=== PATIENT | female | born 1980 | race Two or more races ===

== ENCOUNTER 2025-08-02 18:54 | Emergency (ER) | payer OTHER ==
[~2025-08-02] VITALS: Ht 152.4 cm; Wt 87.5 kg
[2025-08-02] MEDS ORDERED: PEPCID20 MG PO (19:56)
[2025-08-02] MEDS ORDERED: ELIQUIS5 MG PO (19:56)
[2025-08-02] MEDS ORDERED: DEXAMETHASONE SODIUM PHOSPHATE 4 MG/ML VIAL IM ONE (21:45)
[2025-08-02] MEDS ORDERED: ORPHENADRINE CITRATE 30 MG/ML AMPUL IM ONE (21:45)
[2025-08-02] MEDS ORDERED: ORPHENADRINE CITRATE 30 MG/ML AMPUL ONE (23:35)
[2025-08-02] MEDS ORDERED: DEXAMETHASONE SODIUM PHOSPHATE 4 MG/ML VIAL ONE (23:35)
== END 2025-08-03 00:51 | disposition home or self-care (01) ==
LOC: ER 18:55
DX: S43.91XA Sprain of unspecified parts of right shoulder girdle, initial encounter (principal); M25.511 Pain in right shoulder; Z88.8 Allergy status to other drugs, medicaments and biological substances